=== PATIENT | female | born 1990 | race Caucasian/White ===

== ENCOUNTER 2016-10-28 22:55 | Emergency (ER) | payer OTHER ==
[2016-10-28] MEDS ORDERED: Sodium Chloride 0.9% 1,000 ML IV ONE (23:13)
[2016-10-28] MEDS ORDERED: Ondansetron 4 MG/2 ML SDV IV ONE (23:13)
--- NOTE | 2016-10-28 23:17 | EDM.PDOC ---
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 - Physical Exam Exam: See Below Exam Limited By: No Limitations General Appearance: Alert, WD/WN, Mild Distress, Other (discomfort) Eye Exam: Bilateral Eye: PERRL (pupils ER @ 5mm) Ears: Hearing Grossly Normal Throat/Mouth: Normal Voice, No Airway Compromise Head Exam: Atraumatic Neck: Non-Tender, Full Range of Motion Respiratory/Chest: No Respiratory Distress Cardiovascular: Regular Rate, Rhythm GI/Abdominal: Soft, Non-Tender Neuro Exam (Abbreviated): Alert, Oriented, Normal Cognition, Normal Gait, No Motor/Sensory Deficits Psychiatric: Flat Affect Skin Exam: Warm, Dry, Normal Color Course - Vital Signs Last Recorded V/S: Last Vital Signs Temp 36.7 C 10/28/16 23:03 Pulse 71 10/28/16 23:37 Resp 18 10/28/16 23:37 BP 127/84 10/28/16 23:37 Pulse Ox 98 10/28/16 23:37 - Orders/Labs/Meds Orders: Active Orders 24 hr Category Date Time Status Sodium Chloride 0.9% [Normal Saline] 1,000 ml Med 10/28/16 23:13 Active IV .BOLUS Medication Orders Sodium Chloride (Normal Saline) 1,000 mls @ 500 mls/hr IV .BOLUS ONE Stop: 10/29/16 01:12 Last Admin: 10/28/16 23:30 Dose: 500 mls/hr Labs: Laboratory Tests 10/28/16 10/28/16 10/28/16 Range/Units 23:18 23:18 23:18 WBC 13.1 H (5.0-10.0) 10^3/uL RBC 4.18 L (4.2-5.4) 10^6/uL Hgb 11.6 L (12.0-16.0) g/dL Hct 34.3 L (37.0-47.0) % MCV 82.1 (80-100) fL MCH 27.8 (27.0-34.0) pg MCHC 33.8 (33.0-35.0) g/dL Plt Count 318 (150-450) 10^3/uL Neut % (Auto) 60.8 (42.2-75.2) % Lymph % (Auto) 31.8 (20.5-50.1) % Casey % (Auto) 6.0 (2-8) % Eos % (Auto) 1.1 (1.0-3.0) % Baso % (Auto) 0.3 (0.0-1.0) % Sodium 138 (135-145) mmol/L Potassium 3.6 (3.6-5.0) mmol/L Chloride 104 (101-111) mmol/L Carbon Dioxide 21.0 (21.0-31.0) mmol/L Anion Gap 16.6 BUN 10 (7-18) mg/dL Creatinine 0.6 (0.6-1.3) mg/dL Est Cr Clr Drug Dosing 111.39 mL/min Estimated GFR (MDRD) > 60 BUN/Creatinine Ratio 16.66 Glucose 94 (74-105) mg/dL Calcium 9.0 (8.4-10.2) mg/dl Total Bilirubin 0.5 (0.2-1.0) mg/dL AST 26 (10-42) IU/L ALT 16 (10-60) IU/L Alkaline Phosphatase 135 H (42-121) IU/L Total Protein 6.9 (6.7-8.2) g/dl Albumin 2.9 L (3.2-5.5) g/dl Globulin 4.0 Albumin/Globulin Ratio 0.73 HCG, Quant > 1370 H (0-25) mIU/ml Beta HCG, Quant 09954 mIU/ml Meds: Medications Generic Name Dose Route Start Last Admin Trade Name Freq PRN Reason Stop Dose Admin Sodium Chloride 1,000 mls @ 500 mls/hr 10/28/16 23:13 10/28/16 23:30 Normal Saline IV 10/29/16 01:12 500 mls/hr .BOLUS ONE Administration Discontinued Medications Generic Name Dose Route Start Last Admin Trade Name Freq PRN Reason Stop Dose Admin Hydrocodone Bitart/Acetaminophen 1 tab 10/28/16 23:46 10/28/16 23:51 [place] 325-10 Mg PO 10/28/16 23:47 1 tab ONETIME ONE Administration Ondansetron HCl 4 mg 10/28/16 23:13 10/28/16 23:31 Zofran IV 10/28/16 23:14 4 mg ONETIME ONE Administration - Re-Assessments/Exams Free Text/Narrative Re-Assessment/Exam: 10/29/16 00:12 re-exam; feeling better now. Departure - Departure Time of Disposition: 00:24 Disposition: Home, Self-Care 01 Condition: Good Clinical Impression: Migraine - Discharge Information Instructions: General Headache Without Cause, [id number] Forms: ED Department Discharge Additional Instructions: 1) rest 2) follow up with Dr Hernandez 3) recheck if there is any change or concern - My Orders Last 24 Hours: My Active Orders 10/28/16 23:13 Sodium Chloride 0.9% [Normal Saline] 1,000 ml IV .BOLUS - Assessment/Plan Last 24 Hours: My Active Orders 10/28/16 23:13 Sodium Chloride 0.9% [Normal Saline] 1,000 ml IV .BOLUS
[2016-10-28 23:39] VITALS: BP 127/84
[2016-10-28 23:44] LABS: CHLORIDE,CL 104 mmol/L (101-111); SODIUM,NA 138 mmol/L (135-145)
[2016-10-28] MEDS ORDERED: Acetaminophen/HYDROcodone 325-10 MG Tab PO ONE (23:46)
[2016-10-29] MEDS ORDERED: Acetaminophen/HYDROcodone 325-10 MG Tab ONE (00:26)
[2016-10-29] MEDS ORDERED: Acetaminophen/HYDROcodone 325-10 MG Tab PO ONE (00:26)
== END 2016-10-29 00:35 | disposition home or self-care (01) ==
LOC: DL.ED 22:55
DX: G43.909 Migraine, unspecified, not intractable, without status migrainosus (principal); Z91.013 Allergy to seafood
CPT/HCPCS: 36415; 80053; 84702; 85025; 96361; 96374; 99284; A9270; J2405; J7030

== ENCOUNTER 2016-11-09 09:29 | Inpatient (IN) | payer OTHER ==
[2016-11-09] MEDS ORDERED: Lactated Ringers 500 ML IV ONE (09:54)
[2016-11-09] MEDS ORDERED: Nalbuphine 10 MG/1 ML Vial IM PRN (09:54)
[2016-11-09] MEDS ORDERED: Lidocaine 1% 30 ML SDV INJECT PRN (09:54)
[2016-11-09] MEDS ORDERED: Carboprost Tromethamine 250 MCG/1 ML Amp IM PRN (09:54)
[2016-11-09] MEDS ORDERED: Sodium Chloride 0.9% 10 ML Syringe FLUSH PRN (09:54)
[2016-11-09] MEDS ORDERED: Ondansetron 4 MG/2 ML SDV IV PRN (09:54)
[2016-11-09] MEDS ORDERED: Acetaminophen 325 MG Tab PO PRN (09:54)
[2016-11-09] MEDS ORDERED: Misoprostol 400 MCG (4 X 100 MCG TAB) RECTAL PRN (09:54)
[2016-11-09] MEDS ORDERED: Oxytocin/Normal Saline 30 UNIT/500 ML BAG IV SCH (10:00)
[2016-11-09] MEDS: Lactated Ringers 1,000 ML IV SCH ×3 (11:18→18:15)
[2016-11-09] MEDS ORDERED: Oxytocin/Normal Saline 30 UNIT/500 ML BAG IV ONE (14:58)
[2016-11-09] MEDS ORDERED: fentaNYL 100 MCG/2 ML SDV ITHECAL ONE (17:07)
--- NOTE | 2016-11-09 17:39 | PN ---
DATE: 11/09/2016 SUBJECTIVE: Doing well. Continues to have good movement. No leakage of fluid or vaginal bleeding. Starting to feel the contractions a little bit more like a contraction and not just uterine cramping. Denies any significant change in pelvic pressure. OBJECTIVE: T-max is 99.7, blood pressure currently 139/80, and pulse of 80, blood pressure earlier 133/79, 145/85, 140/83. Pitocin is currently running at 8. Cervix is 3.5 cm dilated, 80% effaced, -3 station, but head is well applied. Artificial rupture of membranes carried out without complications and clear fluid was noted. The patient tolerated well. ASSESSMENT: Unchanged from admission. PLAN: Continue induction of labor for gestational hypertension. Note the protein creatinine ratio was only 0.2 in the dipstick only trace. She is a primigravida patient who has had excellent care. See history and physical for full details. I will be signing her care over to Dr. Michele through delivery and through the weekend. The patient has had this explained to her as well. [facility] /[id number]
[2016-11-09] MEDS ORDERED: fentaNYL 100 MCG/2 ML SDV ONE (20:45)
--- NOTE | 2016-11-09 21:42 | PCM.PRNOTE ---
- Free Text/Narrative Note: Called to L and D, pt requesting analgesia for labor. Consent obtained. Discussed pros/cons with patient and S/O Andrei. Pt was placed into a sitting position. L3/L4 interspace was identified. Using sterile technique, back was prepped with betadine x3. A transparent fenestrated drape was applied. A skin wheel was placed using 1 mL of 1% lidocaine at L3/L4. A 24 gauge 4 inch pencan needle was inserted. Positive CSF, Negative Heme, Negative paresthesias on first attempt. 2.2 ml solution containing 7.5 mg (1 mL) of 0.75% marcaine, 30 mcg of fentanyl, and 20 mcg of sufenta, was administered without difficulty. Needle removed, pt then placed onto left side instructed for 30 minutes. No itching noted. No complications noted. Will continue to monitor.
[2016-11-10] MEDS ORDERED: fentaNYL 100 MCG/2 ML SDV IVPUSH ONE ×2 (00:30→03:22)
[2016-11-10] MEDS: Lactated Ringers 1,000 ML IV SCH ×2 (02:04→02:06)
[2016-11-10] MEDS ORDERED: fentaNYL 100 MCG/2 ML SDV ONE (03:27)
[2016-11-10] MEDS: Ibuprofen 800 MG Tab PO PRN ×2 (07:33→16:12)
[2016-11-10] MEDS: Benzocaine/Menthol 20%-0.5% Spray 56 GM Canister TOP PRN (07:45)
[2016-11-10] MEDS: Acetaminophen/HYDROcodone 325-10 MG Tab PO PRN ×4 (08:41→22:29)
[2016-11-10] MEDS: Docusate Sodium 100 MG Cap PO PRN ×2 (08:42→19:46)
[2016-11-11] MEDS: Ibuprofen 800 MG Tab PO PRN ×3 (01:42→23:27)
[2016-11-11] MEDS: Acetaminophen/HYDROcodone 325-10 MG Tab PO PRN ×4 (02:44→16:54)
[2016-11-11] MEDS: Docusate Sodium 100 MG Cap PO PRN (07:44)
--- NOTE | 2016-11-11 11:26 | PN ---
DATE: 11/10/2016 LOCATION: [facility]. SUBJECTIVE: The patient is still somewhat tired, of course, but otherwise feels relieved and happy that labor is over with. She does have some slight perineal soreness. Her lochia flow is within normal limits. She has been ambulating and eating breakfast, etc. OBJECTIVE: Vital Signs: Her vital signs are stable. Fundus is firm. Lochia flow is within normal limits. Extremities: Negative. ASSESSMENT: Stable course. PLAN: The patient will increase her fluid intake and do progressive ambulation. All of her questions have been answered. [facility] /[id number]
[2016-11-11] MEDS: Benzocaine/Menthol 20%-0.5% Spray 56 GM Canister TOP PRN (11:41)
[2016-11-12] MEDS: Acetaminophen/HYDROcodone 325-10 MG Tab PO PRN ×3 (02:58→11:49)
[2016-11-12 08:28] VITALS: BP 126/84
--- NOTE | 2016-11-12 08:53 | PN ---
DATE: 11/11/2016 LOCATION: [facility]. SUBJECTIVE: Fay is doing well and even better today. She has less perineal discomfort. She has been ambulating and tolerating her diet, and has had normal bowel movement recently. She is breast-feeding her baby now and that is getting better and gradually getting more well established for her. She has had a good visit with Dr. Campbell earlier this morning. OBJECTIVE: vital Signs: Remain stable. Abdomen: The fundus is firm. Extremities: Negative except for some 1+ ankle and pretibial edema. Homans sign is negative. ASSESSMENT: Stable course. PLAN: We will obtain CBC for a discharge hemoglobin tomorrow. She will do progressive ambulation, and continue with adequate hydration and healthy well- balanced nutritional measures. All of her questions have been answered. Either Thalia or Dr. Dara Hernandez would round on her and discharge her tomorrow, on Saturday, 11/12. [facility] /[id number]
--- NOTE | 2016-11-12 09:02 | DEL ---
DATE: 11/10/2016 The patient was noted to be persistent occiput posterior a little later in the course of her labor. She was having considerable back pain and did receive intrathecal analgesia which helped very much initially and then of course, did wear off sometime later. The patient did spontaneously rotate the 's vertex and she then became OA. The patient was able to proceed on with a spontaneous vaginal delivery from the occiput anterior position. She did have a viable baby boy named Corinna and his scores were 8 and 9 and his weight was later reported as 6 pounds 3 ounces. I did choose to proceed with a small midline second degree episiotomy because during the last 30-40 seconds or so of her prolonged 2nd stage of labor, I was not able to audibly picker and sorter load and unload heart tones. It was not clear whether or not there was significant bradycardia or a lack of heart tones and therefore we expeditiously facilitated the delivery with a small midline second-degree episiotomy and then the patient was able to proceed on and push the baby out very nicely as mentioned above. The small midline episiotomy was repaired in the usual fashion using 3-0 Vicryl and 1% lidocaine local infiltration. The sponge and instrument count was reported as correct. Estimated blood loss from the entire delivery process was approximately 300 mL. The placenta was delivered spontaneous and intact. The delivery itself did occur at 0351 hours on early this morning 11/10/2016. She did essentially have just under 4 hour 2nd stage of labor therefore. Mrs. Stearns and her baby boy have continued to do very well in the delivery room area, they continued to remain stable. [facility] /[id number]
[2016-11-12] MEDS: Ibuprofen 800 MG Tab PO PRN (11:44)
--- NOTE | 2016-11-23 02:57 | DISCH ---
ADMITTING DIAGNOSES: 1. A 39 and 5/7 weeks intrauterine . 2. 1, para 0. 3. Gestational hypertension. 4. Leg swelling. 5. Nausea and vomiting. 6. Blood type O positive, rubella immune, group B strep negative. DISCHARGE DIAGNOSES: 1. A 39 and 5/7 weeks intrauterine . 2. 1, para 1. 3. Gestational hypertension. 4. Leg swelling. 5. Nausea and vomiting. 6. Blood type O positive, rubella immune, group B strep negative. 7. Anemia of acute blood loss. 8. Status post spontaneous vaginal delivery with second-degree repair. BRIEF HISTORY: A 26-year-old female, admitted to the hospital for IOL after being seen at the clinic with elevated pressures. Ruled out for preeclampsia. She was in stage I labor for approximately 8 hours, managed with artificial rupture of membranes and intrathecal for anesthesia, which unfortunately had worn off prior to delivery, and she ended up pushing for about 4 hours with a lot of back labor before finally delivering. Dr. Michele was her delivering physician and needed to perform any episiotomy to help with her delivery and then performed a second-degree laceration repair from its extension. Delivery was otherwise uncomplicated. Nursing staff and doctor felt her pushing effort was inhibited by her back pain, but once she started pushing well she made rapid progress. Placenta delivered shortly thereafter. Baby did well with scores of 8 and 9. He is a male infant with a weight of 2815 g, 6 pounds 3.3 ounces. HOSPITAL COURSE: Since delivery, the patient had done well. She has been ambulating and tolerating regular diet. Bleeding has been well controlled. Denies any chest pain or shortness of breath. No symptoms of preeclampsia. her baby and nurses have been helping her with that. Otherwise, she denies any other problems or complications and feels ready to go home today. DISCHARGE CONDITION: Good. PHYSICAL EXAMINATION: Vital signs: Have returned to normal and were reviewed in [facility]. Heart: Regular without obvious murmur. Lungs: Clear to auscultation bilaterally. Abdomen: Soft without masses and fundus is firm below the umbilicus. Extremities: Full range of motion. She does have 1+ edema bilaterally. No erythema or tenderness noted. LABORATORY DATA: Labs show a hemoglobin of 11.5 on admission down to 10.5 at discharge. DISPOSITION: Home with family. MEDICATIONS: 1. [id number] ibuprofen and Tylenol as needed for pain. 2. Iron 325 mg twice daily. 3. Colace 100 mg twice daily as needed for constipation. FOLLOWUP: She will need to make a 6-week appointment with myself. Will check pressures when she bring her son for well child checks. INSTRUCTIONS: Routine post vaginal delivery instructions were provided including to call or come in if she has any problems with increased pain, foul- smelling vaginal drainage or discharge, bleeding, or any other concerns. Her questions were answered. [facility] /[id number]
== END 2016-11-12 12:30 | disposition home or self-care (01) | DRG 775 ==
LOC: DL.OBCHECK 09:29 → DL.OB 10:05 → OBSVTOIN 11-10 03:51
PROVIDERS: ADMIT Obstetrics & Gynecology; ATTEND Family Medicine
PROC: 10E0XZZ Delivery of Products of Conception, External Approach (ICD-10-PCS; principal; 2016-11-10)
PROC: 3E033VJ Introduction of Other Hormone into Peripheral Vein, Percutaneous Approach (ICD-10-PCS; 2016-11-10)
PROC: 0W8NXZZ Division of Female Perineum, External Approach (ICD-10-PCS; 2016-11-10)
PROC: 0KQM0ZZ Repair Perineum Muscle, Open Approach (ICD-10-PCS; 2016-11-10)
PROC: 10907ZC Drainage of Amniotic Fluid, Therapeutic from Products of Conception, Via Natural or Artificial Opening (ICD-10-PCS; 2016-11-10)
DX: O13.4 Gestational [pregnancy-induced] hypertension without significant proteinuria, complicating childbirth (principal); O70.1 Second degree perineal laceration during delivery; Z37.0 Single live birth; Z3A.39 39 weeks gestation of pregnancy
CPT/HCPCS: 36415; 83615; 84450; 84460; 84520; 85025; 85027; A9270-GY; J2300; J2405; J2590; J3010; J7120